=== PATIENT | male | born 1975 | race Two or more races ===

== ENCOUNTER 2023-07-16 11:15 | Emergency (ER) | payer SELFPAY ==
[~2023-07-16] VITALS: Ht 167.6 cm; Wt 81.6 kg
[2023-07-16] MEDS ORDERED: IBUP-1456 PO (13:16)
[2023-07-16] MEDS ORDERED: HYDR50CA PO (13:16)
[2023-07-16 13:20] VITALS: BP 147/94; PULSE 84; RESP 18; TEMP 98.1; O2SAT 99
== END 2023-07-16 13:22 | disposition home or self-care (01) ==
LOC: ER 11:15
DX: S63.8X1A Sprain of other part of right wrist and hand, initial encounter (principal); S53.491A Other sprain of right elbow, initial encounter; F41.9 Anxiety disorder, unspecified; Z79.899 Other long term (current) drug therapy; X58.XXXA Exposure to other specified factors, initial encounter; Y93.72 Activity, wrestling; Y92.89 Other specified places as the place of occurrence of the external cause; Y99.8 Other external cause status
CPT/HCPCS: 73080; 73110; 73130

== ENCOUNTER 2023-08-21 10:02 | Emergency (ER) | payer SELFPAY ==
[~2023-08-21] VITALS: Ht 167.6 cm; Wt 84.8 kg
[~2023-08-21 10:02] MED LIST: HYDR50CA PO; IBUP-1456 PO
[2023-08-21 10:27] VITALS: BP 149/89; PULSE 102; RESP 20; TEMP 97.9; O2SAT 96
[2023-08-21] MEDS ORDERED: HYDROcodone-ACET 5/325MG TAB PO ONE (11:15)
[2023-08-21] MEDS ORDERED: HYDR-4902 PO (12:07)
== END 2023-08-21 12:17 | disposition home or self-care (01) ==
LOC: ER 10:02
DX: S22.41XA Multiple fractures of ribs, right side, initial encounter for closed fracture (principal); W10.8XXA Fall (on) (from) other stairs and steps, initial encounter; Y93.01 Activity, walking, marching and hiking; Y92.813 Airplane as the place of occurrence of the external cause; Y99.8 Other external cause status
CPT/HCPCS: 71101